=== PATIENT | female | born 1995 | race Caucasian/White ===

== ENCOUNTER 2016-09-10 06:29 | Day surgery (SDC) | payer BC ==
[~2016-09-10] VITALS: Ht 152.4 cm; Wt 72.6 kg
--- NOTE | ~2016-09-10 | S ---
[facility] [place] [address] SURGICAL PATH RPT PROCEDURE Name: PILAR MCGINNIS Room #: DEP [facility]..#: [id number] Admission: 09/10/16 Date of : 89 Discharge: 09/11/16 Report #: [id number] Path Case #: [id number] PATHOLOGY REPORT COLLECTION DATE: 09/10/2016 RECEIVED DATE: 09/11/2016 SUBMITTING PHYS: Dr. Kishore Watson OTHER PHYS: Dr. Rizwana Mohamud SPECIMEN(S) RECEIVED: A.Gallbladder * * * * * * * * * * * * FINAL DIAGNOSIS: "Gallbladder", cholecystectomy: - Chronic cholecystitis and cholesterolosis. (CLW:mml; 09/12/2016) PATHOLOGIST: Latanya Burt M.D. REPORT ELECTRONICALLY SIGNED BY: Latanya Burt M.D. DATE/TIME: 09/12/2016 13:25 * * * * * * * * * * * * GROSS PATHOLOGY: Received in formalin labeled "Pilar Mcginnis, gallbladder," is a 4.4 x 3.3 x 1.2 cm, previously opened gallbladder with pink-rodriguez serosal surfaces. Opening the gallbladder reveals velvety, bile-stained mucosa displaying mild, diffuse cholesterolosis and an average wall thickness of 0.1 cm. Calculi are not present and no masses are noted grossly. Esthetician Facialist sections from the body and fundus are submitted along with the proximal margin in cassette A1. ([facility]; 09/11/2016) CLINICAL HISTORY: Cholecystitis INITIAL CPT CODE(S): A; 68639 Professional services performed by [facility] at [facility] [address], [place] [address] Technical services performed by [facility] at [address] [place] [id number]. [facility] [address] [place] [address] SURGICAL PATH RPT PROCEDURE Name: PILAR MCGINNIS Room #: DEP [facility] Karri#: [id number] Admission: 09/10/16 Date of : 89 Discharge: 09/11/16 Report #: [id number] Path Case #: [id number] [facility] [address] [address] PHONE: [phone] DIRECTOR: Danial Vanegas M.D. * * * END OF REPORT * * *
--- NOTE | ~2016-09-10 | O ---
[facility] [place] [address] OPERATIVE REPORT Name: SHANA MCGINNIS Room #: 447-P [facility] M..#: [id number] Admission: 09/10/16 Attend Phys: Kishore Watson MD Discharge: Date of : 89 Report #: [id number] THIS REPORT FOR: //name// CC: Rizwana Watson DATE OF SERVICE: 09/10/2016 PREOPERATIVE DIAGNOSIS: Acalculous cholecystitis/biliary dyskinesia. POSTOPERATIVE DIAGNOSIS: Acalculous cholecystitis/biliary dyskinesia. FINDINGS: There was extensive adhesion over the gallbladder and cholesterolosis identified. This represents a finding of an inflamed gallbladder. PROCEDURE PERFORMED: Laparoscopic cholecystectomy with cholangiogram. SURGEON: Kishore Watson MD. ANESTHESIA: General anesthesia. COMPLICATIONS: None. ESTIMATED BLOOD LOSS: 5 mL. PROCEDURE NOTE: The patient under general anesthesia, abdomen was prepped and draped in sterile fashion. Timeout was performed. A 0.25% Marcaine was used to anesthetize the skin and abdominal wall. A small 2 cm incision was made infraumbilically. Fascia identified, grasped with hemostat. Fascia was then opened under visualization. An 0 Vicryl suture was placed on the fascia on each side for retraction. Veress needle was then placed through peritoneum. Abdominal cavity was insufflated with CO2. After creating pneumoperitoneum pressure of 15, 11 mm trocar was placed through the fascial defect through the peritoneum under visualization. No harm to underlying tissue. The patient did have quite a bit of adhesion around the gallbladder surrounding the gallbladder. Two 5 mm trocars were placed in the right upper quadrant, another 5 mm trocar in the right epigastrium. These adhesions were taken down off the gallbladder. The proximal gallbladder was identified. The cystic artery is coming inferiorly and then looping around the cystic duct. This is likely pinching off the cystic duct. The cystic artery was isolated. The cystic artery was clipped x 2 proximally and one distally and then divided. After the artery was divided, the cystic duct was then visualized. The cystic duct was isolated without difficulty. A clip was placed in junction of cystic duct to the gallbladder, opening was made in the cystic duct. Cholangiogram catheter was placed in the cystic duct, there was resistant to the placement of the catheter. The catheter [facility] [address] [place] [address] OPERATIVE REPORT Name: SHANA MCGINNIS [facility] Room #: 447-P [facility] M.R.#: [id number] Admission: 09/10/16 Attend Phys: Kishore Watson MD Discharge: Date of : 89 Report #: [id number] was able to be held with the clip. Fluoroscopic cholangiogram was obtained. The dye flowed pretty well through the catheter and the cystic duct is quite appearance. I did not see any filling defect. I do not see any filling defect in the common duct. Common duct is preserved from harm. The dye flowed readily into the duodenum. The cholangiogram catheter was then removed. The proximal part of the cystic duct was clipped x 2. Cystic duct was then divided. Gallbladder was freed from the liver bed without difficulty. Gallbladder was retrieved through the infraumbilical port. Gallbladder was opened off the field and there was extensive cholesterolosis in the gallbladder. No stones identified. Liver bed was checked, hemostasis obtained and excellent. The irrigation was performed. Irrigation was aspirated out. CO2 was evacuated. Trocars were removed. The infraumbilical fascia defect was closed with [id number] 0 Vicryl. Skin was irrigated, closed with 5-0 PDS. Steri-Strip, Band-Aids applied. By: [id number] Kishore Watson MD /nt
--- NOTE | ~2016-09-10 | H ---
[facility] [place] [address] HISTORY AND PHYSICAL Name: SHANA MCGINNIS Room #: PRE [facility] M.R.#: [id number] Admission: Attend Phys: Kishore Watson MD Discharge: Date of : 89 Report #: [id number] THIS REPORT FOR: //name// CC: Rizwana Watson DATE OF SERVICE: 09/10/2016 PREOPERATIVE DIAGNOSIS: Cholecystitis with acalculous biliary dyskinesia. HISTORY OF PRESENT ILLNESS: The patient is a 21-year-old who has had abdominal pain on a consistent basis over the last 2 weeks. This started after eating barbecue pork sandwich. The patient developed pain about 20-30 minutes after eating. The right upper quadrant felt tight and difficulty breathing and then the pain got worse, increased gas and bloating. The pain has been constant since 2 weeks ago, but it would increase in intensity. It became more stabbing. It is located under the right breast. Now also experiencing pain in the epigastric area. It does go from the right upper quadrant to the right back. She has had diagnosis of acid reflux for years, which are same type of symptoms but milder. The patient has multiple family members on the mother's side that had gallbladder disease. The sharp, intense component only lasted few seconds and then the consistent pain persisted. Two weeks ago, she did have some loose stools, but now her bowels are normal. The patient had an ultrasound. I do not have report, which she said did not have any stones. The patient did have a PIPIDA scan, which I do have a report of and it showed a decreased ejection fraction 11%. The patient said the PIPIDA scan also did cause pain in the right upper quadrant and intensified after the Kinevac injection. The patient is recommended to proceed with gallbladder surgery. She has been pretty miserable for last 2 weeks and has been only able to eat very little food. PAST MEDICAL HISTORY: The patient does have past history of psoriatic arthritis and also histoplasmosis when she was taking immunosuppressive medications for the psoriatic arthritis. PAST SURGICAL HISTORY: Has not had any surgery. ALLERGIES: SHE IS ALLERGIC TO NAPROXEN. CURRENT MEDICATIONS: Depo-Provera and meloxicam. FAMILY HISTORY: Gallbladder disease. There is heart disease on the dad's side. Diabetes and high blood pressure on the mother's side. Gallbladder disease on the mother's side. Elevated cholesterol on both sides. SOCIAL HISTORY: The patient is an apparel associate. Does not smoke and drinks [facility] [address] [place] [address] HISTORY AND PHYSICAL Name: SHANA MCGINNIS Room #: [facility].#: [id number] Admission: Attend Phys: Kishore Watson MD Discharge: Date of : 89 Report #: [id number] may be 2 drinks a month. REVIEW OF SYSTEMS: No headache, shortness of breath, chest pain or palpitation. No extremity numbness or weakness. No headache or blurred vision. PHYSICAL EXAMINATION: GENERAL: The patient is a well-nourished female, in no acute distress. She is well developed and well nourished. HEENT: Pupils react to light. Extraocular muscles are intact. Oropharynx clear. NECK: Soft and supple. No masses. LUNGS: Clear to auscultation. HEART: Regular rate and rhythm. No murmur or gallop. ABDOMEN: Soft with tenderness in the right upper quadrant. There is no mass, guarding or rigidity. No ascites. No incision identified. EXTREMITIES: No cyanosis, clubbing or edema. IMPRESSION: The patient is a 21-year-old who has had 2 weeks of abdominal pain. The pain is in the right upper quadrant on the rib area, goes to her back. More recently, she has had some pain in the epigastrium. She has had longstanding history of "acid reflux". The pain has been consistent for last 2 weeks. It would be a bit sharp and stabbing in nature at times. The patient is recommended to have gallbladder removed. Laparoscopic cholecystectomy was discussed. No stones were seen on ultrasound. PIPIDA scan does support gallbladder disease. Her history is pretty classic gallbladder disease with significant family history too. The patient is brought in for surgery. The laparoscopic cholecystectomy was discussed in detail. She understands the procedure, risk of bleeding, infection and bile duct injury. The patient wishes to proceed. By: [id number] Kishore Watson MD /nt
[2016-09-10 15:54] VITALS: BP 124/73
[2016-09-10 20:42] VITALS: BP 125/75
[2016-09-11 00:10] VITALS: BP 114/64
[2016-09-11 03:48] VITALS: BP 110/65
[2016-09-11] MEDS ORDERED: NORCO 5-325 TA1 EACH PO (11:00)
[2016-09-11 11:11] VITALS: BP 110/65
== END 2016-09-11 11:35 | disposition home or self-care (01) ==
LOC: OR 06:29 → TBA 06:29 → OR 16:35 → 4S 19:36 → OR 09-11 11:35
DX: K81.1 Chronic cholecystitis (principal); K82.8 Other specified diseases of gallbladder; Z88.8 Allergy status to other drugs, medicaments and biological substances
CPT/HCPCS: 50010; 50101; 50411; 50555; 50558; 51489; 53307; 53310; 55245; 55317; 56462; 56525; 56526; 62110; 62900; 70005

== ENCOUNTER 2020-07-15 01:06 | Emergency (ER) | payer OTHER ==
[~2020-07-15] VITALS: Ht 152.4 cm; Wt 72.6 kg
[~2020-07-15 01:06] MED LIST: NORCO 5-325 TA1 EACH PO
[2020-07-15] MEDS ORDERED: PROMETHAZINE PO (01:16)
[2020-07-15] MEDS ORDERED: TOPAMAX100 MG PO (01:16)
[2020-07-15] MEDS ORDERED: DEPO MEDROL (01:16)
[2020-07-15] MEDS ORDERED: CAFERGOT TABLE1 EACH PO (01:17)
[2020-07-15] MEDS ORDERED: MEDROLDOSEPACK PO (02:19)
[2020-07-15 02:31] VITALS: BP 132/86
== END 2020-07-15 02:34 | disposition home or self-care (01) ==
LOC: ER 01:06
DX: S46.811A Strain of other muscles, fascia and tendons at shoulder and upper arm level, right arm, initial encounter (principal); M77.8 Other enthesopathies, not elsewhere classified; Z88.2 Allergy status to sulfonamides; Z88.6 Allergy status to analgesic agent; X58.XXXA Exposure to other specified factors, initial encounter; Y93.89 Activity, other specified; Y92.89 Other specified places as the place of occurrence of the external cause; Y99.8 Other external cause status